=== PATIENT | male | born 1985 | race Hispanic/Latino ===

== ENCOUNTER 2017-07-29 23:27 | Emergency (ER) | payer BC, SELFPAY ==
[2017-07-30 00:20] LABS: Urine Appearance CLEAR; Urine Bilirubin NEGATIVE (NEG); Urine Blood 3+ (NEG); Urine Color YELLOW; Urine Glucose NEGATIVE (NEG); Urine Protein NEGATIVE (NEG); Urine Urobilinogen 0.2 mg/dL (0.2-1.0); Urine pH 5.5 (5.0-7.0)
[2017-07-30 00:25] LABS: Urine Microscopic Reflex ORDER UMIC
[2017-07-30 00:28] LABS: Urine Blood 2+ (NEG); Urine Glucose NEGATIVE (NEG); Urine Protein NEGATIVE (NEG); Urine pH 5.5 (5.0-7.0)
[2017-07-30 00:38] LABS: Urine Bacteria <20 /HPF (NONE SEEN); Urine Culture Reflex Order NOT NEEDED; Urine RBC 20-50 /HPF (NONE SEEN)
[2017-07-30 01:13] LABS: Absolute Monocytes 0.6 K/uL (0.1-1.3); Basophils % 0.6 % (0-1.3); Eosinophils % 2.1 % (0-4.4); Hematocrit 41.7 % (39.6-49.0); Lymphocytes % 22.8 % (15.3-44.8); MCH 25.9 pg (27.0-35.0); MCV 80.4 fL (80-100); Monocytes % 6.7 % (3.3-12.3); RBC Red Blood Cell Count 5.19 M/uL (4.33-5.43)
[2017-07-30 01:33] LABS: Potassium 3.4 mEq/L (3.6-5.0)
[2017-07-30] MEDS ORDERED: POTASSIUM CL SA 10 MEQ TAB PO ONE (01:45)
--- NOTE | 2017-07-30 01:55 | EDPHYS ---
Physician Documentation [facility] Name: Norberto Gonsales Age: 31 yrs Sex: Male : 1985 Arrival Date: 07/29/2017 Time: 23:32 Bed 13 Private MD: Benigno Rivera F ED Physician Lawson Diane HPI: 07/30 00:47 This 31 yrs old Male presents to ER via Ambulatory with complaints of BLOOD IN kb URINE. 00:47 The patient presents with urinary symptoms, hematuria. Onset: The symptoms/episode kb began/occurred last night, at 22:00. Modifying factors: The symptoms are alleviated by nothing, the symptoms are aggravated by nothing. Associated signs and symptoms: Pertinent positives: hematuria, Pertinent negatives: abdominal pain, constipation, diarrhea, dysuria, fever, nausea, vomiting. Severity of symptoms: At their worst the symptoms were mild, in the emergency department the symptoms are unchanged. The patient has not experienced similar symptoms in the past. The patient has not recently seen a physician. Historical: - Allergies: 00:01 No Known Allergies; bb - Home Meds: 00:01 None [Active]; bb - PMHx: 00:01 ADD/ADHD; bb - PSHx: 00:01 None; bb - Immunization history:: Adult Immunizations up to date, Flu vaccine is not up to date. - Social history:: Smoking status: Patient/guardian denies using tobacco, Patient uses alcohol, occasionally. Patient/guardian denies using street drugs. ROS: 00:44 Constitutional: Negative for fever, chills, and weight loss, Cardiovascular: Negative kb for chest pain, palpitations, and edema, Respiratory: Negative for shortness of breath, cough, wheezing, and pleuritic chest pain, Abdomen/GI: Negative for abdominal pain, nausea, vomiting, diarrhea, and constipation, MS/Extremity: Negative for injury and deformity, Skin: Negative for injury, rash, and discoloration, Neuro: Negative for headache, weakness, numbness, tingling, and seizure. 00:44 : Positive for hematuria. Exam: 00:44 Constitutional: This is a well developed, well nourished patient who is awake, alert, kb and in no acute distress. Head/Face: Normocephalic, atraumatic. Chest/axilla: Normal chest wall appearance and motion. Nontender with no deformity. No lesions are appreciated. Cardiovascular: Regular rate and rhythm with a normal S1 and S2. No gallops, murmurs, or rubs. Normal PMI, no JVD. No pulse deficits. Respiratory: Lungs have equal breath sounds bilaterally, clear to auscultation and percussion. No rales, rhonchi or wheezes noted. No increased work of breathing, no retractions or nasal flaring. Abdomen/GI: Soft, non-tender, with normal bowel sounds. No distension or tympany. No guarding or rebound. No evidence of tenderness throughout. Back: No spinal tenderness. No costovertebral tenderness. Full range of motion. Skin: Warm, dry with normal turgor. Normal color with no rashes, no lesions, and no evidence of cellulitis. MS/ Extremity: Pulses equal, no cyanosis. Neurovascular intact. Full, normal range of motion. Neuro: Awake and alert, GCS 15, oriented to person, place, time, and situation. Cranial nerves II-XII grossly intact. Motor strength 5/5 in all extremities. Sensory grossly intact. Cerebellar exam normal. Normal gait. Vital Signs: 00:01 BP 122 / 83; Pulse 82; Resp 18 S; Temp 97.9(O); Pulse Ox 99% on R/A; Weight 133.81 kg bb (R); Height 5 ft. 9 in. (175.26 cm) (R); Pain 0/10; 01:00 BP 122 / 64; Pulse 78; Resp 16; Pulse Ox 99% ; bs1 02:00 BP 106 / 57; Pulse 66; Resp 16; Temp 98.0(T); Pulse Ox 99% on R/A; Pain 0/10; bs1 00:01 Body Mass Index 43.56 (133.81 kg, 175.26 cm) bb MDM: 00:06 Patient medically screened. tw4 00:46 Data reviewed: vital signs, nurses notes. Data interpreted: Pulse oximetry: on room air kb is 99 %. Interpretation: normal. 01:55 Counseling: I had a detailed discussion with the patient and/or guardian regarding: the kb historical points, exam findings, and any diagnostic results supporting the discharge/admit diagnosis, lab results, radiology results, the need for outpatient follow up, a family practitioner, a urologist, to return to the emergency department if symptoms worsen or persist or if there are any questions or concerns that arise at home. 07/30 00:06 Order name: Urinalysis; Complete Time: 00:43 tw4 07/30 00:06 Order name: Urine Dipstick--Ancillary (enter results); Complete Time: 00:33 em1 07/30 00:26 Order name: Urine Microscopic Only; Complete Time: 00:43 EDMS 07/30 00:46 Order name: CBC with Diff; Complete Time: 01:20 kb 07/30 00:46 Order name: Basic Metabolic Panel; Complete Time: 01:35 kb 07/30 00:46 Order name: CT Stone Protocol; Complete Time: 15:10 kb 07/30 00:06 Order name: Urine Dipstick-Ancillary (obtain specimen); Complete Time: 00:07 tw4 Administered Medications: 01:48 Drug: Potassium Chloride 20 mEq Route: PO; bs1 02:06 Follow up: Response: No adverse reaction bs1 Disposition: 03:15 Co-signature as Attending Physician, Lawson Diane MD I agree with the assessment and tw4 plan of care. Disposition: 07/30/17 01:55 Discharged to Home. Impression: Hematuria, unspecified. - Condition is Stable. - Discharge Instructions: Hematuria, Adult. - Medication Reconciliation Form, Thank You Letter, Antibiotic Education, Prescription Opioid Use form. - Follow up: Emergency Department; When: As needed; Reason: Worsening of condition. Follow up: Benigno Rivera MD; When: 2 - 3 days; Reason: Recheck today's complaints, Continuance of care, Re-evaluation by your physician. Signatures: Dispatcher [employer] Madai Geiger, MARILYN-C MARILYN-Susan Dick, RN RN Rekha Munroe RN RN bs1 Lawson Diane MD MD tw4
--- NOTE | 2017-07-30 01:55 | ER ---
Nurse's Notes [facility] Name: Norberto Gonsales Age: 31 yrs Sex: Male : 1985 Arrival Date: 07/29/2017 Time: 23:32 Bed 13 Private MD: Benigno Rivera F Diagnosis: Hematuria, unspecified Presentation: 07/30 00:00 Presenting complaint: Patient states: at approx 2200 he had burning with urination and bb noticed some blood in his urine. Transition of care: patient was not received from another setting of care. Onset of symptoms was July 29, 2017 at 22:00. Initial Sepsis Screen: Does the patient meet any 2 criteria? No. Patient's initial sepsis screen is negative. Does the patient have a suspected source of infection? No. Patient's initial sepsis screen is negative. Care prior to arrival: None. 00:00 Method Of Arrival: Ambulatory bb 00:00 Acuity: MATILDE 4 bb Historical: - Allergies: 00:01 No Known Allergies; bb - Home Meds: 00:01 None [Active]; bb - PMHx: 00:01 ADD/ADHD; bb - PSHx: 00:01 None; bb - Immunization history:: Adult Immunizations up to date, Flu vaccine is not up to date. - Social history:: Smoking status: Patient/guardian denies using tobacco, Patient uses alcohol, occasionally. Patient/guardian denies using street drugs. Screenin:27 Abuse screen: Denies threats or abuse. Denies injuries from another. Nutritional bs1 screening: No deficits noted. Tuberculosis screening: No symptoms or risk factors identified. Fall Risk None identified. Assessment: 00:10 General: Appears in no apparent distress. uncomfortable, Behavior is calm, cooperative, bs1 appropriate for age. 00:10 Pain: Denies pain. Neuro: Level of Consciousness is awake, alert, obeys commands, bs1 Oriented to person, place, time, situation, Appropriate for age Gre Tutor are equal bilaterally Moves all extremities. Gait is steady, Speech is normal, Facial symmetry appears normal. Cardiovascular: Denies chest pain, palpitations, shortness of breath, Heart tones S1 S2 present Capillary refill < 3 seconds Patient's skin is warm and dry. Respiratory: Airway is patent Trachea midline Respiratory effort is even, unlabored, Respiratory pattern is regular, symmetrical, Breath sounds are clear bilaterally. GI: No deficits noted. No signs and/or symptoms were reported involving the gastrointestinal system. : Reports burning with urination, blood in urine. EENT: No deficits noted. No signs and/or symptoms were reported regarding the EENT system. Derm: Skin is intact, Skin is pink, warm \T\ dry. Musculoskeletal: Circulation, motion, and sensation intact. Capillary refill < 3 seconds, Range of motion: intact in all extremities. 01:48 Reassessment: No changes from previously documented assessment. Patient and/or family bs1 updated on plan of care and expected duration. Pain level reassessed. Patient is alert, oriented x 3, equal unlabored respirations, skin warm/dry/pink. 11:26 General: Attempted to call patient regarding CT results. Message left to call ED back.. pt Vital Signs: 00:01 BP 122 / 83; Pulse 82; Resp 18 S; Temp 97.9(O); Pulse Ox 99% on R/A; Weight 133.81 kg bb (R); Height 5 ft. 9 in. (175.26 cm) (R); Pain 0/10; 01:00 BP 122 / 64; Pulse 78; Resp 16; Pulse Ox 99% ; bs1 02:00 BP 106 / 57; Pulse 66; Resp 16; Temp 98.0(T); Pulse Ox 99% on R/A; Pain 0/10; bs1 00:01 Body Mass Index 43.56 (133.81 kg, 175.26 cm) bb ED Course: 07/29 23:32 Patient arrived in ED. al2 23:32 Benigno Rivera MD is Private Physician. al2 23:44 Rekha Richard, YULY is Primary Nurse. bs1 07/30 00:01 Triage completed. bb 00:01 Arm band placed on Patient placed in an exam room, on a stretcher, on pulse oximetry. bb 00:06 Lawson Diane MD is Attending Physician. tw4 00:27 Patient has correct armband on for positive identification. Bed in low position. Call bs1 light in reach. Side rails up X 1. Pulse ox on. NIBP on. 00:42 Madai Mckinney FNP-C is PHCP. kb 01:00 Inserted saline lock: 20 gauge in right antecubital area, using aseptic technique. By bs1 Doreen Santillan. 01:03 No provider procedures requiring assistance completed. bs1 01:14 CT Stone Protocol In Process Unspecified. EDMS 01:55 Benigno Rivera MD is Referral Physician. kb 02:05 IV discontinued, bleeding controlled, No redness/swelling at site. Pressure dressing bs1 applied. 12:37 Patient contacted and notified of CT result. Patient instructed to follow up, patient pt states he understands need for follow up plan and treatment. Administered Medications: 01:48 Drug: Potassium Chloride 20 mEq Route: PO; bs1 02:06 Follow up: Response: No adverse reaction bs1 Outcome: 01:55 Discharge ordered by MD. kb 02:05 Discharged to home ambulatory. bs1 02:05 Condition: stable 02:05 Discharge instructions given to patient, Instructed on discharge instructions, follow up and referral plans. Demonstrated understanding of instructions, follow-up care. 02:06 Patient left the ED. bs1 Signatures: Dispatcher [employer] EDND Madai Mckinney, HEALTH AND WELLNESS MANAGER-C HEALTH AND WELLNESS MANAGER-CkYris Fletcher, RN RN pt Susan Pearce RN RN bb Rekha Richard, YULY RN bs1 Shey Díaz Terrence, MD MD tw4
--- NOTE | 2017-07-30 11:16 | RAD REPORT ---
EXAM DESCRIPTION: CT - Stone Protocol - 07/30/2017 7:00 am CLINICAL HISTORY: Abdominal pain. Hematuria with dysuria COMPARISON: 2013 TECHNIQUE: Computed axial tomography of the abdomen pelvis was obtained without oral or IV contrast. Lack of IV and oral contrast limits evaluation of solid organs, bowel, and vessels. Coronal reformat aureliano images were obtained and reviewed. A preliminary report was generated by [email or web address] and reviewed prior to this dictation All CT scans are performed using dose optimization technique as appropriate and may include automated exposure control or mA/KV adjustment according to patient size. FINDINGS: A renal calculus is not seen. An ureteral calculus is not noted. A bladder calculus is not present. The liver, spleen, pancreas and adrenals appear grossly normal There is no evidence of diverticulitis. The appendix appears normal. There is questionable mild soft tissue within the left lateral rectum. IMPRESSION: Negative for a genitourinary calculus Questionable mild soft tissue within the left lateral rectum may be secondary to incomplete distentio n or a mass. Digital examination is recommended. The examination was discussed Unruly Sam in the Emergency Room at 1113 a.m. on July 30, 2017
== END 2017-07-30 02:06 | disposition home or self-care (01) ==
LOC: ER 23:27
DX: R31.9 Hematuria, unspecified (principal)
CPT/HCPCS: 36415; 74176; 76377; 80048; 81003; 81015; 85025; 99284

== ENCOUNTER 2023-01-30 08:47 | Emergency (ER) | payer OTHER, SELFPAY ==
--- NOTE | 2023-01-30 09:41 | RAD REPORT ---
EXAM DESCRIPTION: RAD - Lumbar Spine 3 Views - 01/30/2023 9:33 am CLINICAL HISTORY: Back pain FINDINGS: No fracture or dislocation is seen. Mild spondylosis involves the lumbar spine
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
[2023-01-30] MEDS ORDERED: KETOROLAC 30 MG/ML INJ ONE (09:54)
== END 2023-01-30 10:12 | disposition home or self-care (01) ==
LOC: ER 08:47
DX: S33.5XXA Sprain of ligaments of lumbar spine, initial encounter (principal); V49.49XA Driver injured in collision with other motor vehicles in traffic accident, initial encounter
CPT/HCPCS: 72100